=== PATIENT | female | born 1960 | race Hispanic/Latino ===

== ENCOUNTER 2017-11-29 20:46 | Emergency (ER) | payer OTHER, SELFPAY ==
[2017-11-29] MEDS ORDERED: Ketorolac Tromethamine 60 MG/2 ML VIAL ONE (21:47)
--- NOTE | 2017-11-29 22:22 | RAD ---
THREE VIEWS RIGHT SHOULDER 11/29/17 HISTORY: Right shoulder pain after picking up boxes. FINDINGS: There is mild right acromioclavicular joint osteoarthritis. The coracoclavicular and acromioclavicula r distances are within normal limits. No fracture or dislocation is seen involving the right shoulder . IMPRESSION: No acute osseous abnormality right shoulder. POS: [facility]
== END 2017-11-29 22:56 | disposition home or self-care (01) ==
LOC: ERS 20:46
DX: S46.911A Strain of unspecified muscle, fascia and tendon at shoulder and upper arm level, right arm, initial encounter (principal); I10 Essential (primary) hypertension; E78.00 Pure hypercholesterolemia, unspecified; M19.90 Unspecified osteoarthritis, unspecified site; X50.9XXA Other and unspecified overexertion or strenuous movements or postures, initial encounter; Y99.0 Civilian activity done for income or pay
CPT/HCPCS: 96372; J1885